=== PATIENT | female | born 1985 | race Two or more races ===

== ENCOUNTER → 2017-01-07 | Outpatient (CLI) | payer OTHER ==
[~2017-01-07] MED LIST: GLYB1.257 PO; METF-370 PO; PREN-145 PO
[2017-01-07 08:04] LABS: Basophils # (auto) 0 uL; Basophils % (auto) 0.3 % (0.0-2.0); CONDITION Y; Eosinophils # (auto) 0.1 uL; Eosinophils % (auto) 0.9 % (0.0-7.0); Hematocrit 39.2 % (36.0-46.0); Hemoglobin 13.2 g/dL (12.2-16.2); Lymphocytes # (auto) 1.7 uL; Lymphocytes % (auto) 21.7 % (10.0-50.0); Mean Corpuscular Hemoglobin 29.9 pg (28.0-32.0); Mean Corpuscular Hgb Conc. 33.6 g/dL (32.0-36.0); Mean Platelet Volume 8.2 fL (7.4-10.4); Monocytes # (auto) 0.6 uL; Monocytes % (auto) 6.9 % (0.0-12.0); Neutrophils # (auto) 5.6 uL; Neutrophils % (auto) 70.2 % (37.0-80.0); Platelet Count (auto) 308 10^3/uL (140-450); Red Cell Distribution Width 14.4 % (11.6-16.0)
== END | disposition home or self-care (01) ==
LOC: LAB 07:41
PROVIDERS: ATTEND Obstetrics & Gynecology
DX: Z34.80 Encounter for supervision of other normal pregnancy, unspecified trimester (principal); Z31.430 Encounter of female for testing for genetic disease carrier status for procreative management
CPT/HCPCS: 36415; 82951; 83036; 85025; 86703; 86762; 86850; 86900; 86901; 87086; 87088; 87186; 87340

== ENCOUNTER → 2017-05-07 | Outpatient (CLI) | payer OTHER ==
[2017-05-07 09:58] LABS: Basophils # (auto) 0 uL; Basophils % (auto) 0.1 % (0.0-2.0); Eosinophils # (auto) 0.1 uL; Eosinophils % (auto) 0.7 % (0.0-7.0); Hematocrit 37.3 % (36.0-46.0); Hemoglobin 12.2 g/dL (12.2-16.2); Lymphocytes # (auto) 1.3 uL; Lymphocytes % (auto) 18.5 % (10.0-50.0); Mean Corpuscular Hemoglobin 29.2 pg (28.0-32.0); Mean Corpuscular Hgb Conc. 32.7 g/dL (32.0-36.0); Mean Corpuscular Volume 89.4 fL (80.0-100.0); Monocytes # (auto) 0.4 uL; Monocytes % (auto) 5.8 % (0.0-12.0); Neutrophils # (auto) 5.4 uL; Neutrophils % (auto) 74.9 % (37.0-80.0); Nucleated Red Blood Cells % 0.1 %; Platelet Count (auto) 271 10^3/uL (140-450); White Blood Cell 7.3 10^3/uL (4.4-10.8)
== END | disposition home or self-care (01) ==
LOC: LAB 09:20
PROVIDERS: ATTEND Obstetrics & Gynecology
DX: Z34.80 Encounter for supervision of other normal pregnancy, unspecified trimester (principal); Z3A.00 Weeks of gestation of pregnancy not specified
CPT/HCPCS: 36415; 85025

== ENCOUNTER 2017-05-23 09:00 | Observation (INO) | payer OTHER ==
[2017-05-23] MEDS ORDERED: INSLANTI SC (09:40)
[2017-05-23] MEDS ORDERED: GLYB5TAB8 PO (09:41)
[2017-05-23] MEDS ORDERED: GLYB2.5T8 PO (09:42)
== END 2017-05-23 09:58 | disposition home or self-care (01) | DRG 781 ==
LOC: LDRP 09:00
PROVIDERS: ADMIT Specialist; ATTEND Specialist
DX: O24.419 Gestational diabetes mellitus in pregnancy, unspecified control (principal); Z3A.30 30 weeks gestation of pregnancy
CPT/HCPCS: 59025; 76818; 81002; 82962; G0378

== ENCOUNTER 2017-05-30 09:00 | Observation (INO) | payer OTHER ==
[~2017-05-30 09:00] MED LIST changes: -GLYB1.257 PO; +GLYB2.5T8 PO; +GLYB5TAB8 PO; +INSLANTI SC; -METF-370 PO
[2017-05-30] MEDS ORDERED: TERBUTALINE SULFATE 1 MG/ML 1ML VIAL SC ONE ×2 (09:25→09:30)
== END 2017-05-30 10:30 | disposition home or self-care (01) | DRG 781 ==
LOC: LDRP 09:00 → INTOOBSV 09:00 → UNDODISIN 10:30
PROVIDERS: ADMIT Obstetrics & Gynecology; ATTEND Obstetrics & Gynecology
DX: O24.419 Gestational diabetes mellitus in pregnancy, unspecified control (principal); O36.8130 Decreased fetal movements, third trimester, not applicable or unspecified; Z3A.31 31 weeks gestation of pregnancy
CPT/HCPCS: 59025; 76818; 81002; 82948; 82962; 96372; G0378; J3105

== ENCOUNTER 2017-05-30 12:55 | Observation (INO) | payer OTHER ==
[~2017-05-30] VITALS: Ht 157.5 cm; Wt 83.9 kg
[2017-05-30] MEDS ORDERED: BETAMETHASONE ACET (6MG/ML) 5ML VIAL IM ONE (13:30)
[2017-05-30] MEDS ORDERED: LACTATED RINGER'S 1,000 ML IV ONE (16:00)
[2017-05-30] MEDS ORDERED: NIFEdipine 10 MG CAP PO ONE (16:00)
[2017-05-30] MEDS ORDERED: TERBUTALINE SULFATE 1 MG/ML 1ML VIAL SC SCH (17:00)
[2017-05-30] MEDS ORDERED: TERBUTALINE SULFATE 1 MG/ML 1ML VIAL SC ONE (17:09)
== END 2017-05-30 17:45 | disposition home or self-care (01) | DRG 781 ==
LOC: LDRP 12:55
PROVIDERS: ADMIT Obstetrics & Gynecology; ATTEND Obstetrics & Gynecology
DX: O26.893 Other specified pregnancy related conditions, third trimester (principal); R52 Pain, unspecified; Z3A.31 31 weeks gestation of pregnancy
CPT/HCPCS: 59025; 76815; 81002; 82948; 82962; 96360; 96372; G0378; J0702; J7030

== ENCOUNTER 2017-05-31 13:20 | Observation (INO) | payer OTHER ==
[~2017-05-31] VITALS: Ht 157.5 cm; Wt 83.9 kg
[2017-05-31] MEDS ORDERED: BETAMETHASONE ACET (6MG/ML) 5ML VIAL IM ONE (13:45)
== END 2017-05-31 14:20 | disposition home or self-care (01) | DRG 781 ==
LOC: LDRP 13:20
PROVIDERS: ADMIT Obstetrics & Gynecology; ATTEND Obstetrics & Gynecology
DX: O24.113 Pre-existing type 2 diabetes mellitus, in pregnancy, third trimester (principal); O62.9 Abnormality of forces of labor, unspecified; Z3A.31 31 weeks gestation of pregnancy
CPT/HCPCS: 59025; 81002; 82962; 96372; G0378

== ENCOUNTER 2017-06-02 18:54 | Observation (INO) | payer OTHER ==
[2017-06-02 19:50] LABS: Urine Bacteria FEW /hpf (None Seen); Urine Blood Negative /uL (Negative); Urine Specific Gravity 1.026 (1.001-1.035); Urine WBC 3 /hpf (0 - 5)
== END 2017-06-02 20:45 | disposition home or self-care (01) | DRG 781 ==
LOC: LDRP 18:54
PROVIDERS: ADMIT Specialist; ATTEND Specialist
DX: O24.419 Gestational diabetes mellitus in pregnancy, unspecified control (principal); Z3A.31 31 weeks gestation of pregnancy
CPT/HCPCS: 59025; 76818; 81001; 81002; 82948; 82962; G0378

== ENCOUNTER 2017-06-06 11:47 | Observation (INO) | payer OTHER | END 2017-06-06 13:50 | disposition home or self-care (01) | DRG 781 | LOC: LDRP 11:47 | PROVIDERS: ADMIT Specialist; ATTEND Specialist | DX: O24.419 Gestational diabetes mellitus in pregnancy, unspecified control (principal); Z3A.32 32 weeks gestation of pregnancy | CPT/HCPCS: 59025; 76818; 81002; 82948; 82962; G0378 ==

== ENCOUNTER 2017-06-08 15:50 | Observation (INO) | payer OTHER | END 2017-06-08 17:20 | disposition home or self-care (01) | DRG 781 | LOC: LDRP 15:50 | PROVIDERS: ADMIT Obstetrics & Gynecology; ATTEND Obstetrics & Gynecology | DX: O24.419 Gestational diabetes mellitus in pregnancy, unspecified control (principal); O62.9 Abnormality of forces of labor, unspecified; Z3A.32 32 weeks gestation of pregnancy | CPT/HCPCS: 59025; 76818; 81002; 82948; G0378 ==

== ENCOUNTER 2017-06-11 16:25 | Observation (INO) | payer OTHER ==
[2017-06-11] MEDS ORDERED: NIF10C GT (17:59)
== END 2017-06-11 17:50 | disposition home or self-care (01) | DRG 566 ==
LOC: LDRP 16:25
PROVIDERS: ADMIT Specialist; ATTEND Specialist
DX: O24.419 Gestational diabetes mellitus in pregnancy, unspecified control (principal); Z3A.33 33 weeks gestation of pregnancy
CPT/HCPCS: 59025; 76818; 81002; 82948; G0378

== ENCOUNTER 2017-06-16 16:20 | Observation (INO) | payer OTHER ==
[~2017-06-16 16:20] MED LIST changes: -GLYB2.5T8 PO; +NIF10C GT
[2017-06-16] MEDS ORDERED: INSLANTI SC (16:35)
[2017-06-16] MEDS ORDERED: INSREG3 IV (16:35)
[2017-06-16 17:38] LABS: Urine Bacteria FEW /hpf (None Seen); Urine Blood Negative /uL (Negative); Urine WBC 2 /hpf (0 - 5)
== END 2017-06-16 18:00 | disposition home or self-care (01) | DRG 781 ==
LOC: LDRP 16:20
PROVIDERS: ADMIT Obstetrics & Gynecology; ATTEND Obstetrics & Gynecology
DX: O62.9 Abnormality of forces of labor, unspecified (principal); O24.419 Gestational diabetes mellitus in pregnancy, unspecified control; O60.03 Preterm labor without delivery, third trimester; H53.8 Other visual disturbances; Z3A.33 33 weeks gestation of pregnancy
CPT/HCPCS: 59025; 76818; 81001; 81002; 82962; G0378; 96361; 96374

== ENCOUNTER 2017-06-19 16:20 | Observation (INO) | payer OTHER ==
[~2017-06-19 16:20] MED LIST changes: -GLYB5TAB8 PO; +INSREG3 IV
[2017-06-19] MEDS ORDERED: INSREG3 IV (16:49)
[2017-06-19] MEDS ORDERED: InsuLIN REG 1unit/0.01ml Soln (100units/ml) SC ONE (17:40)
[2017-06-19] MEDS ORDERED: InsuLIN REG 1unit/0.01ml Soln (100units/ml) ONE (17:48)
== END 2017-06-19 18:05 | disposition home or self-care (01) | DRG 781 ==
LOC: LDRP 16:20
PROVIDERS: ADMIT Obstetrics & Gynecology; ATTEND Obstetrics & Gynecology
DX: O24.419 Gestational diabetes mellitus in pregnancy, unspecified control (principal); Z3A.34 34 weeks gestation of pregnancy
CPT/HCPCS: 59025; 76818; 81002; 82962; 96372; G0378; J1815

== ENCOUNTER 2017-06-23 15:40 | Observation (INO) | payer OTHER ==
[~2017-06-23 15:40] MED LIST changes: -INSLISPI SC; -LABE100T PO; -LABE200T18 PO; -NIF10C PO
[2017-06-23] MEDS ORDERED: NIF10C PO (17:03)
[2017-06-23] MEDS ORDERED: INSLISPI SC ×2 (17:03)
[2017-06-23] MEDS ORDERED: INSLANTI SC ×2 (17:03)
== END 2017-06-23 16:50 | disposition home or self-care (01) | DRG 781 ==
LOC: LDRP 15:40
PROVIDERS: ADMIT Obstetrics & Gynecology; ATTEND Obstetrics & Gynecology
DX: O24.419 Gestational diabetes mellitus in pregnancy, unspecified control (principal); Z3A.34 34 weeks gestation of pregnancy
CPT/HCPCS: 59025; 76818; 81002; G0378

== ENCOUNTER → 2017-06-23 | Outpatient (CLI) | payer OTHER ==
[~2017-06-23] MED LIST changes: +INSLISPI SC; +LABE100T PO; +LABE200T18 PO; +NIF10C PO
[2017-06-23 11:36] LABS: Basophils # (auto) 0 uL; Basophils % (auto) 0.2 % (0.0-2.0); Eosinophils # (auto) 0 uL; Eosinophils % (auto) 0.5 % (0.0-7.0); Hematocrit 39.3 % (36.0-46.0); Hemoglobin 12.8 g/dL (12.2-16.2); Lymphocytes # (auto) 1.9 uL; Lymphocytes % (auto) 31.1 % (10.0-50.0); Mean Corpuscular Hemoglobin 28.8 pg (28.0-32.0); Mean Corpuscular Hgb Conc. 32.6 g/dL (32.0-36.0); Mean Corpuscular Volume 88.4 fL (80.0-100.0); Monocytes # (auto) 0.4 uL; Monocytes % (auto) 6.9 % (0.0-12.0); Neutrophils # (auto) 3.7 uL; Neutrophils % (auto) 61.3 % (37.0-80.0); Nucleated Red Blood Cells % 0.3 %; Platelet Count (auto) 210 10^3/uL (140-450); Red Blood Cells 4.45 10^6/uL (4.0-5.20); Red Cell Distribution Width 15.6 % (11.8-14.3)
== END | disposition home or self-care (01) ==
LOC: LAB 11:03
PROVIDERS: ATTEND Obstetrics & Gynecology
DX: O23.599 Infection of other part of genital tract in pregnancy, unspecified trimester (principal); Z3A.00 Weeks of gestation of pregnancy not specified
CPT/HCPCS: 36415; 85025; 87081

== ENCOUNTER 2017-06-26 16:00 | Observation (INO) | payer OTHER ==
[~2017-06-26 16:00] MED LIST changes: +INSLISPI SC; +NIF10C PO
== END 2017-06-26 16:55 | disposition home or self-care (01) | DRG 781 ==
LOC: LDRP 16:00
PROVIDERS: ADMIT Specialist; ATTEND Specialist
DX: O24.419 Gestational diabetes mellitus in pregnancy, unspecified control (principal); Z3A.35 35 weeks gestation of pregnancy
CPT/HCPCS: 36415; 59025; 76818; 81002; 82962; 83036; G0378

== ENCOUNTER 2017-06-30 15:50 | Observation (INO) | payer OTHER ==
[~2017-06-30] VITALS: Ht 30.5 cm; Wt 0.5 kg
[~2017-06-30 15:50] MED LIST changes: -INSREG3 IV; -NIF10C GT
[2017-06-30 17:30] LABS: Urine Bacteria FEW /hpf (None Seen); Urine Blood Negative /uL (Negative); Urine Mucus FEW (None Seen); Urine Specific Gravity 1.022 (1.001-1.035); Urine WBC 15 /hpf (0 - 5)
[2017-06-30 17:32] LABS: INR 0.85 (0.9-1.15); Partial Thromboplastin Time 27.3 sec (22.64-33.71); Prothrombin Time 9.2 sec (9.37-12.3)
[2017-06-30 17:33] LABS: Basophils # (auto) 0 uL; Basophils % (auto) 0.1 % (0.0-2.0); Eosinophils # (auto) 0 uL; Eosinophils % (auto) 0.9 % (0.0-7.0); Hematocrit 37.6 % (36.0-46.0); Hemoglobin 12.2 g/dL (12.2-16.2); Lymphocytes # (auto) 1.3 uL; Lymphocytes % (auto) 24.9 % (10.0-50.0); Mean Corpuscular Hgb Conc. 32.4 g/dL (32.0-36.0); Mean Corpuscular Volume 89.2 fL (80.0-100.0); Monocytes # (auto) 0.5 uL; Monocytes % (auto) 9.7 % (0.0-12.0); Neutrophils # (auto) 3.4 uL; Neutrophils % (auto) 64.4 % (37.0-80.0); Nucleated Red Blood Cells % 0.1 %; Platelet Count (auto) 217 10^3/uL (140-450); Red Blood Cells 4.21 10^6/uL (4.0-5.20); Red Cell Distribution Width 16.6 % (11.8-14.3); White Blood Cell 5.3 10^3/uL (4.4-10.8)
[2017-06-30 17:35] LABS: Albumin 2.5 g/dL (3.4-5.0); BUN/Creatinine Ratio 15.9; Bilirubin, Total 0.2 mg/dL (0.2-1.0); Calcium 8.3 mg/dL (8.5-10.1); Potassium 3.7 mmol/L (3.5-5.1); Total Protein 6.7 g/dL (6.4-8.2); Uric Acid 7.7 mg/dL (2.6-6.0)
[2017-06-30] MEDS ORDERED: D5W/LACTATED RINGERS 1,000 ML IV SCH (18:30)
[2017-06-30] MEDS ORDERED: NIFEdipine 10 MG CAP ONE (19:39)
[2017-06-30] MEDS ORDERED: NIFEdipine 10 MG CAP PO ONE (19:45)
[2017-06-30] MEDS ORDERED: TERBUTALINE SULFATE 1 MG/ML 1ML VIAL SC ONE ×2 (20:28→20:30)
== END 2017-06-30 21:30 | disposition home or self-care (01) | DRG 781 ==
LOC: LDRP 15:50
PROVIDERS: ADMIT Specialist; ATTEND Specialist
DX: O24.419 Gestational diabetes mellitus in pregnancy, unspecified control (principal); O13.3 Gestational [pregnancy-induced] hypertension without significant proteinuria, third trimester; O62.9 Abnormality of forces of labor, unspecified; Z3A.35 35 weeks gestation of pregnancy
CPT/HCPCS: 36415; 59025; 76818; 80053; 81001; 81002; 82948; 82962; 84550; 85025; 85610; 85730; 96360; 96361; 96372; G0378; J3105; 96365; 96366

== ENCOUNTER 2017-07-02 15:50 | Observation (INO) | payer OTHER ==
[2017-07-02 18:34] LABS: Protein, Urine 39.9 mg/dL (0.0-11.9)
[2017-07-02 18:42] LABS: 24 Hr. Total Protein, Urine 598.5 mg/24 Hr (<149.1)
[2017-07-02 19:11] LABS: Basophils # (auto) 0 uL; Basophils % (auto) 0.3 % (0.0-2.0); Eosinophils # (auto) 0.1 uL; Hematocrit 36.9 % (36.0-46.0); Hemoglobin 12.1 g/dL (12.2-16.2); Lymphocytes # (auto) 1.3 uL; Lymphocytes % (auto) 24.4 % (10.0-50.0); Mean Corpuscular Hemoglobin 29.3 pg (28.0-32.0); Mean Corpuscular Hgb Conc. 32.8 g/dL (32.0-36.0); Mean Corpuscular Volume 89.3 fL (80.0-100.0); Monocytes # (auto) 0.5 uL; Monocytes % (auto) 9.5 % (0.0-12.0); Neutrophils # (auto) 3.5 uL; Neutrophils % (auto) 64.8 % (37.0-80.0); Nucleated Red Blood Cells % 0.1 %; Platelet Count (auto) 191 10^3/uL (140-450); Red Blood Cells 4.13 10^6/uL (4.0-5.20); Red Cell Distribution Width 16.6 % (11.8-14.3); White Blood Cell 5.3 10^3/uL (4.4-10.8)
[2017-07-02 19:22] LABS: INR 0.85 (0.9-1.15); Partial Thromboplastin Time 27.9 sec (22.64-33.71); Prothrombin Time 9.2 sec (9.37-12.3)
[2017-07-02 19:28] LABS: Albumin 2.4 g/dL (3.4-5.0); BUN/Creatinine Ratio 12.5; Bilirubin, Total 0.2 mg/dL (0.2-1.0); Calcium 8.5 mg/dL (8.5-10.1); Potassium 3.7 mmol/L (3.5-5.1); Total Protein 6.6 g/dL (6.4-8.2); Uric Acid 7.4 mg/dL (2.6-6.0)
[2017-07-02 19:28] LABS: Urine Bacteria NONE SEEN /hpf (None Seen); Urine Blood Negative /uL (Negative); Urine Specific Gravity 1.019 (1.001-1.035); Urine WBC 8 /hpf (0 - 5)
[2017-07-03] MEDS ORDERED: LABE100T PO (16:53)
== END 2017-07-02 20:00 | disposition home or self-care (01) | DRG 781 ==
LOC: LDRP 15:50
PROVIDERS: ADMIT Specialist; ATTEND Specialist
DX: O13.3 Gestational [pregnancy-induced] hypertension without significant proteinuria, third trimester (principal); O24.419 Gestational diabetes mellitus in pregnancy, unspecified control; Z3A.36 36 weeks gestation of pregnancy
CPT/HCPCS: 36415; 59025; 76818; 80053; 81001; 81002; 82948; 82962; 84156; 84550; 85025; 85610; 85730; G0378

== ENCOUNTER 2017-07-03 16:03 | Observation (INO) | payer OTHER ==
[2017-07-03] MEDS ORDERED: LABE100T PO (16:53)
== END 2017-07-03 17:05 | disposition home or self-care (01) | DRG 781 ==
LOC: LDRP 16:03
PROVIDERS: ADMIT Obstetrics & Gynecology; ATTEND Obstetrics & Gynecology
DX: O24.419 Gestational diabetes mellitus in pregnancy, unspecified control (principal); O26.893 Other specified pregnancy related conditions, third trimester; M54.9 Dorsalgia, unspecified; R10.2 Pelvic and perineal pain; Z3A.36 36 weeks gestation of pregnancy
CPT/HCPCS: 59025; 76818; 81002; 82948; G0378

== ENCOUNTER 2017-07-06 15:45 | Observation (INO) | payer OTHER ==
[~2017-07-06 15:45] MED LIST changes: +LABE100T PO
[2017-07-06 17:35] LABS: Basophils # (auto) 0 uL; Basophils % (auto) 0.1 % (0.0-2.0); Eosinophils # (auto) 0.1 uL; Eosinophils % (auto) 1.2 % (0.0-7.0); Hemoglobin 11.8 g/dL (12.2-16.2); Lymphocytes # (auto) 1.1 uL; Lymphocytes % (auto) 23.9 % (10.0-50.0); Mean Corpuscular Hemoglobin 28.8 pg (28.0-32.0); Mean Corpuscular Hgb Conc. 31.8 g/dL (32.0-36.0); Mean Corpuscular Volume 90.5 fL (80.0-100.0); Monocytes # (auto) 0.5 uL; Monocytes % (auto) 10.1 % (0.0-12.0); Neutrophils # (auto) 3.1 uL; Neutrophils % (auto) 64.7 % (37.0-80.0); Nucleated Red Blood Cells % 0.1 %; Platelet Count (auto) 193 10^3/uL (140-450); Red Blood Cells 4.08 10^6/uL (4.0-5.20); Red Cell Distribution Width 17.1 % (11.8-14.3); White Blood Cell 4.7 10^3/uL (4.4-10.8)
[2017-07-06 17:40] LABS: INR 0.85 (0.9-1.15); Partial Thromboplastin Time 27.7 sec (22.64-33.71); Prothrombin Time 9.2 sec (9.37-12.3)
[2017-07-06 17:49] LABS: Albumin 2.4 g/dL (3.4-5.0); BUN/Creatinine Ratio 17.1; Bilirubin, Total 0.2 mg/dL (0.2-1.0); Calcium 8.5 mg/dL (8.5-10.1); Total Protein 6.4 g/dL (6.4-8.2); Uric Acid 7.2 mg/dL (2.6-6.0)
[2017-07-07] MEDS ORDERED: LABE200T18 PO (10:17)
== END 2017-07-06 18:10 | disposition home or self-care (01) | DRG 781 ==
LOC: LDRP 15:45
PROVIDERS: ADMIT Obstetrics & Gynecology; ATTEND Obstetrics & Gynecology
DX: O24.419 Gestational diabetes mellitus in pregnancy, unspecified control (principal); Z3A.36 36 weeks gestation of pregnancy
CPT/HCPCS: 36415; 59025; 76818; 80053; 81002; 82962; 84550; 85025; 85610; 85730; G0378

== ENCOUNTER 2017-07-07 08:40 | Observation (INO) | payer OTHER ==
[2017-07-07] MEDS ORDERED: LABE200T18 PO (10:17)
== END 2017-07-07 11:00 | disposition home or self-care (01) | DRG 781 ==
LOC: LDRP 08:40
PROVIDERS: ADMIT Obstetrics & Gynecology; ATTEND Obstetrics & Gynecology
DX: O24.419 Gestational diabetes mellitus in pregnancy, unspecified control (principal); O26.893 Other specified pregnancy related conditions, third trimester; O13.3 Gestational [pregnancy-induced] hypertension without significant proteinuria, third trimester; R10.2 Pelvic and perineal pain; Z3A.36 36 weeks gestation of pregnancy
CPT/HCPCS: 59025; 81002; 82948; G0378

== ENCOUNTER 2017-07-10 07:30 | Observation (INO) | payer OTHER ==
[~2017-07-10 07:30] MED LIST changes: -LABE100T PO; +LABE200T18 PO
== END 2017-07-10 10:25 | disposition home or self-care (01) | DRG 781 ==
LOC: LDRP 07:30
PROVIDERS: ADMIT Obstetrics & Gynecology; ATTEND Obstetrics & Gynecology
DX: O24.419 Gestational diabetes mellitus in pregnancy, unspecified control (principal); Z3A.36 36 weeks gestation of pregnancy
CPT/HCPCS: 59025; 76818; 81002; 82962; G0378

== ENCOUNTER 2017-07-11 03:01 | Inpatient (IN) | payer OTHER ==
[2017-07-11] VITALS (10 sets, daily range): BP systolic 119–144; BP diastolic 74–90
[~2017-07-11] VITALS: Ht 157.5 cm; Wt 88.5 kg
[2017-07-11] MEDS ORDERED: LACTATED RINGER'S 1,000 ML IV SCH (03:24)
[2017-07-11] MEDS ORDERED: LACT. RINGERS/OXYTOCIN 20UNITS 1,000 ML IV SCH (03:24)
[2017-07-11] MEDS ORDERED: DERMOPLAST 60ML BOTTLE TOP PRN (03:30)
[2017-07-11] MEDS ORDERED: PHISODERM TOP SOLN 240ML BTL TOP PRN (03:30)
[2017-07-11] MEDS ORDERED: NALBUPHINE HCL 10 MG/1ml INJECTION IV PRN (03:30)
[2017-07-11] MEDS ORDERED: LIDOCAINE 2%HCL (LOCAL ANESTH.) INJ 20ML MDV IJ PRN (03:30)
[2017-07-11] MEDS ORDERED: PROMETHAZINE HCL 25 MG/ML 1ML IM PRN (03:30)
[2017-07-11] MEDS ORDERED: WITCH HAZEL-GLYCERIN PAD TOP PRN (03:30)
[2017-07-11] MEDS ORDERED: METHYLERGONOVINE MALEATE 0.2 MG/ML AMP IM PRN (03:30)
[2017-07-11] MEDS: LACTATED RINGER'S 1,000 ML IV SCH ×2 (03:39→14:36)
[2017-07-11] MEDS ORDERED: hydrALAZINE HCL 20 MG/ML VL ONE (03:42)
[2017-07-11] MEDS ORDERED: MAGNESIUM SULFATE 100 ML IV ONE ×2 (03:43→03:45)
[2017-07-11] MEDS ORDERED: MAGNESIUM SULFATE 40MG/ML 1,000 ML IV ONE (03:43)
[2017-07-11] MEDS ORDERED: hydrALAZINE HCL 20 MG/ML VL IV PRN (03:45)
[2017-07-11] MEDS ORDERED: ONDANSETRON HCL 4 MG/2 ML VIAL IV PRN (05:00)
[2017-07-11] MEDS ORDERED: CARBOPROST TROMETHAMINE 250 MCG/1ML VIAL IM ONE ×2 (05:00→05:03)
[2017-07-11] MEDS ORDERED: ONDANSETRON HCL 4 MG/2 ML VIAL ONE (05:03)
[2017-07-11] MEDS ORDERED: DIPHENOXYLATE W/ATROPINE 2.5 MG TAB ONE (05:04)
[2017-07-11] MEDS ORDERED: DIPHENOXYLATE W/ATROPINE 2.5 MG TAB PO PRN (05:15)
[2017-07-11] MEDS: MAGNESIUM SULFATE 40MG/ML 1,000 ML IV SCH ×2 (05:20→15:30)
[2017-07-11 06:00] LABS: Basophils # (auto) 0 uL; Basophils % (auto) 0.4 % (0.0-2.0); Eosinophils # (auto) 0.1 uL; Eosinophils % (auto) 0.6 % (0.0-7.0); Hematocrit 35.7 % (36.0-46.0); Hemoglobin 11.6 g/dL (12.2-16.2); Lymphocytes # (auto) 1.2 uL; Lymphocytes % (auto) 9.9 % (10.0-50.0); Mean Corpuscular Hgb Conc. 32.5 g/dL (32.0-36.0); Mean Corpuscular Volume 89.2 fL (80.0-100.0); Monocytes # (auto) 0.6 uL; Monocytes % (auto) 4.8 % (0.0-12.0); Neutrophils # (auto) 10.5 uL; Neutrophils % (auto) 84.3 % (37.0-80.0); Nucleated Red Blood Cells % 0.1 %; Platelet Count (auto) 186 10^3/uL (140-450); Red Cell Distribution Width 16.6 % (11.8-14.3); White Blood Cell 12.5 10^3/uL (4.4-10.8)
[2017-07-11 06:19] LABS: INR 0.85 (0.9-1.15); Prothrombin Time 9.2 sec (9.37-12.3)
[2017-07-11 06:25] LABS: Albumin 2.3 g/dL (3.4-5.0); BUN/Creatinine Ratio 13.9; Bilirubin, Total 0.4 mg/dL (0.2-1.0); Calcium 8.2 mg/dL (8.5-10.1); Potassium 4.5 mmol/L (3.5-5.1); Total Protein 6.2 g/dL (6.4-8.2); Uric Acid 7.9 mg/dL (2.6-6.0)
[2017-07-11 06:34] LABS: Alcohol, Urine < 3.0 mg/dL (0-5); Amphetamine Screen, Urine NEGATIVE (NEGATIVE); Barbiturate Scree,Urine NEGATIVE (NEGATIVE); Benzodiazephine Screen, Urine NEGATIVE (NEGATIVE); Cannabinoid Screen, Urine NEGATIVE (NEGATIVE); Cocaine Screen, Urine NEGATIVE (NEGATIVE); Opiate Scree,Urine NEGATIVE (NEGATIVE); Phencyclidine Screen, Urine NEGATIVE (NEGATIVE)
[2017-07-11 06:58] LABS: Urine Bacteria NONE SEEN /hpf (None Seen); Urine Mucus FEW (None Seen); Urine WBC 377 /hpf (0 - 5)
[2017-07-11 07:23] LABS: Urine Specific Gravity 1.015 (1.001-1.035)
[2017-07-11 07:24] LABS: Urine Blood 2+ /uL (Negative)
[2017-07-11] MEDS: ACETAMINOPHEN 325 MG TAB PO PRN ×2 (10:11→17:29)
[2017-07-11] MEDS: IBUPROFEN 600 MG TAB PO PRN (14:30)
[2017-07-12] VITALS (10 sets, daily range): BP systolic 122–153; BP diastolic 64–87
[2017-07-12] MEDS: IBUPROFEN 600 MG TAB PO PRN ×4 (00:20→19:56)
[2017-07-12] MEDS: ACETAMINOPHEN 325 MG TAB PO PRN (13:16)
[2017-07-13 03:30] VITALS: BP 125/78
[2017-07-13] MEDS: IBUPROFEN 600 MG TAB PO PRN (03:44)
[2017-07-13 07:04] VITALS: BP 147/77
[2017-07-13 11:57] VITALS: BP 135/80
== END 2017-07-13 11:30 | disposition home or self-care (01) | DRG 775 ==
LOC: LDRP 03:01 → OBSVTOIN 03:01 → INTOOBSV 03:01 → LDRP 03:21 → UNDODISIN 07-13 11:30
PROVIDERS: ADMIT Obstetrics & Gynecology; ATTEND Obstetrics & Gynecology
PROC: 10E0XZZ Delivery of Products of Conception, External Approach (ICD-10-PCS; principal; 2017-07-11)
PROC: 0KQM0ZZ Repair Perineum Muscle, Open Approach (ICD-10-PCS; 2017-07-11)
PROC: 10907ZC Drainage of Amniotic Fluid, Therapeutic from Products of Conception, Via Natural or Artificial Opening (ICD-10-PCS; 2017-07-11)
DX: O62.3 Precipitate labor (principal); O24.429 Gestational diabetes mellitus in childbirth, unspecified control; O13.4 Gestational [pregnancy-induced] hypertension without significant proteinuria, complicating childbirth; Z37.0 Single live birth; Z3A.37 37 weeks gestation of pregnancy; O70.1 Second degree perineal laceration during delivery; O75.89 Other specified complications of labor and delivery
CPT/HCPCS: 36415; 51702; 59025; 59409; 80053; 80307; 81001; 82948; 82962; 83735; 84550; 85025; 85610; 85730; 86850; 86900; 86901; 96361; 96365; 96366; 96372; 96374; G0378; J2405; J2590